=== PATIENT | female | born 2000 | race African-American/Black ===

== ENCOUNTER 2022-07-22 18:11 | Emergency (ER) | payer SELFPAY ==
[~2022-07-22] VITALS: Ht 157.5 cm; Wt 50.0 kg
--- NOTE | 2022-07-22 18:39 | ED General ---
General Chief Complaint: Cough/Cold/Flu Symptoms Stated Complaint: VOMITING,COUGH,LIGHTHEADED Nursing Triage Note: PT AMB TO [facility] 6 WITH COMPLAINT OF COUGH, LIGHTHEADED, AND VOMITING. STATES HAS BEEN HAVING SYMPTOMS FOR A WEEK. WAS AROUND [facility] WHO TESTED POSITIVE FOR THE FLU. STATES WHILE AT WORK TONIGHT SHE BECAME LIGHTHEADED AND THOUGHT SHE WAS GOING TO PASS OUT. Source of Information: Patient History of Present Illness Date Seen by Provider: Jul 22, 2022 Time Seen by Provider: 18:30 Initial Comments PT ARRIVES VIA POV FROM HOME PT STATES SHE HAS HAD COUGH AND CONGESTION X 1 WEEK HAS HAD NAUSEA/VOMITING AND DIARRHEA OFF AND ON X 1 WEEK. VOMITING HAS BEEN WORSE SINCE YESTERDAY STATES SHE HAS VOMITED "ALL MORNING" "TOO MANY TIMES TO COUNT" --STATES SHE IS VOMITING UP BILE. NO NAUSEA AT THIS TIME HAS HAD DIARRHEA X 2 TODAY. NO HEMATEMESIS OR COFFEE-GROUND EMESIS, NO BLACK/BLOODY/TARRY STOOLS SHE IS URINATING A NORMAL AMOUNT, AND NO URINARY SYMPTOMS HAS NOT CHECKED HER TEMPERATURE, BUT DOES NOT FEEL LIKE SHE HAS HAD FEVER C/O HEADACHE. WAS AT WORK TODAY AT [employer] AND GOT DIZZY AND THOUGHT SHE WAS GOING TO PASS OUT. HAS BEEN DRINKING WATER AND KEEPS IT DOWN CANNOT KEEP FOOD DOWN. LAST ATE A [employer] ABOUT 3 HOURS AGO AND VOMITED AFTERWARDS. ATE [employer] YESTERDAY AND VOMITED AFTERWARDS. HAS NOT SOUGHT CARE UNTIL TODAY HAS BEEN TAKING NYQUIL FOR COUGH/CONGESTION + SICK CONTACTS WITH FLU--[facility] TESTED + FOR FLU 5 PEOPLE LIVE IN THE HOUSE WITH HER. LMP--NOW, BEGAN 2 DAYS AGO. NO CONTROL PCP: NONE. RECENTLY MOVED HERE FROM [place], [place]. DID NOT HAVE A DR. THERE EITHER Allergies and Home Medications Allergies Coded Allergies: No Known Drug Allergies (Unverified , 07/22/22) Patient Home Medication List Home Medication List Reviewed: Yes Nitrofurantoin Monohyd/M-Cryst (Macrobid 100 mg Capsule) 100 Mg Capsule, 1 TAB PO BID Prescribed by: JUSTINO NOEL on 07/22/221923 Ondansetron (Ondansetron Odt) 4 Mg Tab.rapdis, 4 MG PO Q4H Prescribed by: JUSTINO NOEL on 07/22/221923 Review of Systems Review of Systems Constitutional: see HPI, dizziness, malaise, weakness EENTM: no symptoms reported Respiratory: see HPI, cough; No short of breath Cardiovascular: no symptoms reported Gastrointestinal: see HPI; No abdominal pain; diarrhea, loss of appetite, nausea, vomiting Genitourinary: no symptoms reported Musculoskeletal: no symptoms reported Skin: no symptoms reported Psychiatric/Neurological: See HPI, Headache Hematologic/Lymphatic: No Symptoms Reported Immunological/Allergic: no symptoms reported Past Ixobxoc-Zehcxc-Xnnamx Hx Patient Social History Tobacco Use?: No Use of E-Cig and/or Vaping dev: Yes Substance use?: No Alcohol Use?: No Pt feels they are or have been: No Immunizations Up To Date Influenza Vaccine Up-to-Date: No; Not Current First/Initial COVID19 Vaccinat: NO Second COVID19 Vaccination Memo: NO Physical Exam Vital Signs Vital Signs - First Documented 07/22/22 18:18 Pulse 80 Resp 16 B/P (MAP) 122/65 (84) Pulse Ox 100 O2 Delivery Room Air Capillary Refill : Less Than 3 Seconds Height, Weight, BMI Height: '" Weight: lbs. oz. kg; 20.00 BMI Method: General Appearance: No Apparent Distress, WD/WN, Other (DOES NOT APPEAR ILL OR TO BE IN ANY DISCOMFORT OR DISTRESS. CONSTANTLY TEXTING AND FACE-TIME AND /P LAYING ON PHONE THROUGHOUT HISTORY AND EXAM. REFUSES TO PUT PHONE DOWN. ) HEENT: PERRL/EOMI, Normal ENT Inspection, Pharynx Normal, Moist Mucous Membranes Neck: Normal Inspection Respiratory: Normal Breath Sounds, No Accessory Muscle Use, No Respiratory Distress Cardiovascular: Regular Rate, Rhythm, No Murmur Gastrointestinal: Non Tender, Soft Back: Normal Inspection Extremity: Normal Inspection Neurologic/Psychiatric: Alert, Oriented x3, No Motor/Sensory Deficits, Normal Mood/Affect, gore maker II-XII Norm as Tested Skin: Normal Color (PT IS BLACK), Warm/Dry; No Rash Progress/Results/Core Measures Suspected Sepsis SIRS Temperature: Pulse: 80 Respiratory Rate: 16 Laboratory Tests 07/22/22 18:42: White Blood Count 11.1H Blood Pressure 122 /65 Mean: 84 Laboratory Tests 07/22/22 18:42: Creatinine 0.78, Platelet Count 142, Total Bilirubin 0.6 Results/Orders Lab Results Laboratory Tests Test 07/22/22 18:30 07/22/22 18:42 07/22/22 18:47 Range/Units Influenza Type A (RT-PCR) Detected H Not Detecte Influenza Type B (RT-PCR) Not Detected Not Detecte SARS-CoV-2 RNA (RT-PCR) Not Detected Not Detecte White Blood Count 11.1 H 4.3-11.0 10^3/uL Red Blood Count 4.09 3.80-5.11 10^6/uL Hemoglobin 12.4 11.5-16.0 g/dL Hematocrit 36 35-52 % Mean Corpuscular Volume 87 80-99 fL Mean Corpuscular Hemoglobin 30 25-34 pg Mean Corpuscular Hemoglobin Concent 35 32-36 g/dL Red Cell Distribution Width 12.0 10.0-14.5 % Platelet Count 142 130-400 10^3/uL Mean Platelet Volume 9.7 9.0-12.2 fL Immature Granulocyte % (Auto) 0 % Neutrophils (%) (Auto) 83 H 42-75 % Lymphocytes (%) (Auto) 12 12-44 % Monocytes (%) (Auto) 5 0-12 % Eosinophils (%) (Auto) 0 0-10 % Basophils (%) (Auto) 0 0-10 % Neutrophils # (Auto) 9.2 H 1.8-7.8 10^3/uL Lymphocytes # (Auto) 1.3 1.0-4.0 10^3/uL Monocytes # (Auto) 0.5 0.0-1.0 10^3/uL Eosinophils # (Auto) 0.0 0.0-0.3 10^3/uL Basophils # (Auto) 0.0 0.0-0.1 10^3/uL Immature Granulocyte # (Auto) 0.0 0.0-0.1 10^3/uL Percent Immature Platelet Fraction 2.9 0.0-7.6 % Sodium Level 140 135-145 MMOL/L Potassium Level 3.3 L 3.6-5.0 MMOL/L Chloride Level 104 98-107 MMOL/L Carbon Dioxide Level 23 21-32 MMOL/L Anion Gap 13 5-14 MMOL/L Blood Urea Nitrogen 14 7-18 MG/DL Creatinine 0.78 0.60-1.30 MG/DL Estimat Glomerular Filtration Rate 111 BUN/Creatinine Ratio 18 Glucose Level 113 H 70-105 MG/DL Calcium Level 9.2 8.5-10.1 MG/DL Corrected Calcium 9.0 8.5-10.1 MG/DL Magnesium Level 2.0 1.6-2.4 MG/DL Total Bilirubin 0.6 0.1-1.0 MG/DL Aspartate Amino Transf (AST/SGOT) 17 5-34 U/L Alanine Aminotransferase (ALT/SGPT) 13 0-55 U/L Alkaline Phosphatase 49 40-136 U/L Total Protein 7.1 6.4-8.2 GM/DL Albumin 4.3 3.2-4.5 GM/DL Amylase Level 86 25-125 U/L Lipase 28 8-78 U/L Urine Color ORANGE Urine Clarity SL CLOUDY Urine pH 6.5 5-9 Urine Specific [place] >=1.030 1.016-1.022 Urine Protein 3+ H NEGATIVE Urine Glucose (UA) NEGATIVE NEGATIVE Urine Ketones 3+ H NEGATIVE Urine Nitrite NEGATIVE NEGATIVE Urine Bilirubin 2+ H NEGATIVE Urine Urobilinogen 4.0 < = 1.0 MG/DL Urine Leukocyte Esterase TRACE H NEGATIVE Urine RBC (Auto) 3+ H NEGATIVE Urine RBC 25-50 H /HPF Urine WBC 5-10 H /HPF Urine Squamous Epithelial Cells 2-5 /HPF Urine Crystals NONE /LPF Urine Bacteria NEGATIVE /HPF Urine Casts NONE /LPF Urine Mucus MODERATE H /LPF Urine Culture Indicated YES Urine Opiates Screen NEGATIVE NEGATIVE Urine Oxycodone Screen NEGATIVE NEGATIVE Urine Methadone Screen NEGATIVE NEGATIVE Urine Propoxyphene Screen NEGATIVE NEGATIVE Urine Barbiturates Screen NEGATIVE NEGATIVE Ur Tricyclic Antidepressants Screen NEGATIVE NEGATIVE Urine Phencyclidine Screen NEGATIVE NEGATIVE Urine Amphetamines Screen NEGATIVE NEGATIVE Urine Methamphetamines Screen NEGATIVE NEGATIVE Urine Benzodiazepines Screen NEGATIVE NEGATIVE Urine Cocaine Screen NEGATIVE NEGATIVE Urine Cannabinoids Screen POSITIVE H NEGATIVE Micro Results Microbiology 07/22/22 Urine Culture - Preliminary, Resulted Culture In Progress My Orders Orders - JUSTINO NOEL DO Urine Bedside (07/22/22 18:30) Drug Screen Stat (Urine) (07/22/22 18:30) Ua Culture If Indicated (07/22/22 18:30) Covid 19 Inhouse Test (07/22/22 18:30) Influenza A And B By Pcr (07/22/22 18:30) Isolation Central Supply Req (07/22/22 18:30) Ed Iv/Invasive Line Start (07/22/22 18:39) Monitor-Rhythm Ecg Trace Only (07/22/22 18:39) Amylase (07/22/22 18:39) Cbc With Automated Diff (07/22/22 18:39) Comprehensive Metabolic Panel (07/22/22 18:39) Lipase (07/22/22 18:39) Magnesium (07/22/22 18:39) Ed Iv/Invasive Line Start (07/22/22 18:39) Lactated Ringers (Lr 1000 Ml Iv Solution (07/22/22 18:45) Urine Culture (07/22/22 18:47) Medications Given in ED Vital Signs/I&O 07/22/22 07/22/22 18:18 19:46 Pulse 80 91 Resp 16 16 B/P (MAP) 122/65 (84) 123/75 Pulse Ox 100 100 O2 Delivery Room Air Room Air Capillary Refill : Less Than 3 Seconds Blood Pressure Mean: 84 Progress Note : Progress Note PPE WORN COVID AND FLU TESTING DONE GIVEN IV FLUIDS PT IS INFLUENZA A +, HER SYMPTOMS HAVE BEEN ONGOING FOR A WEEK, SHE IS OUTSIDE TREATMENT WINDOW FOR ANTIVIRAL THERAPY. PT WAS ABLE TO VOID ON ARRIVAL. SHE DOES NOT APPEAR TO BE TOXIC, OR ACUTELY ILL. NO COUGH NO DYSPNEA NO HYPOXIA NO FEVER NO GI SYMPTOMS . NO NAUSEA DURING ER STAY. DURING ER STAY. VITALS STABLE. Departure Impression Primary Impression: Influenza A Additional Impressions: Dehydration UTI (urinary tract infection) Disposition: HOME, SELF-CARE Condition: Stable Departure-Patient Inst. Decision time for Depature: 19:01 Referrals: NO,LOCAL PHYSICIAN (PCP/Family) Primary Care Physician Patient Instructions: Flu, Adult (DC), How to Wash Your Hands Properly, Preventing the Spread of an Infectious Disease, Dehydration, Adult ED, Urinary Tract Infection, Adult ED Add. Discharge Instructions: HOME, REST LOTS OF CLEAR LIQUIDS--WATER, BROTH, JELLO, GATORADE BRATS DIET--BANANAS, RICE, APPLESAUCE, TOAST, SALTINES TYLENOL 1 GRAM PLUS MOTRIN 800 MG 4 TIMES A DAY NEEDED FOR PAIN OR FEVER OVER THE COUNTER MEDICATIONS FOR COUGH AND CONGESTION FOLLOW UP WITH DR OF CHOICE IN 4-5 DAYS IF NO BETTER, RETURN TO ER IF WORSE All discharge instructions reviewed with patient and/or family. Voiced understanding. Scripts Nitrofurantoin Monohyd/M-Cryst (Macrobid 100 mg Capsule) 100 Mg Capsule 1 TAB PO BID, #20 CAP Prov: JUSTINO NOEL DO 07/22/22 Ondansetron (Ondansetron Odt) 4 Mg Tab.rapdis 4 MG PO Q4H for Nausea/Vomiting, #10 TAB Prov: JUSTINO NOEL DO 07/22/22 Work/School Note: Local Medical Staff Listing, Work Release Form Date Seen in the Emergency Department: Jul 22, 2022 Return to Work: Jul 29, 2022 JUSTINO NOEL DO Jul 22, 2022 18:39
[2022-07-22] MEDS ORDERED: LACTATED RINGERS 1,000 ML IV ONE (18:45)
[2022-07-22 18:53] LABS: BASOPHILS % (AUTO) 0 % (0-10); EOSINOPHILS % (AUTO) 0 % (0-10); HEMOGLOBIN 12.4 g/dL (11.5-16.0); MONOCYTES # (AUTO) 0.5 10^3/uL (0.0-1.0); MONOCYTES % (AUTO) 5 % (0-12); NEUTROPHILS # (AUTO) 9.2 10^3/uL (1.8-7.8)
[2022-07-22 18:55] LABS: HEMATOCRIT 36 % (35-52); LYMPHOCYTES # (AUTO) 1.3 10^3/uL (1.0-4.0); LYMPHOCYTES % (AUTO) 12 % (12-44); MEAN CORPUSCULAR HEMOGLOBIN 30 pg (25-34); MEAN CORPUSCULAR HGB CONC 35 g/dL (32-36); MEAN CORPUSCULAR VOLUME 87 fL (80-99); MEAN PLATELET VOLUME 9.7 fL (9.0-12.2); NEUTROPHILS % (AUTO) 83 % (42-75); PLATELET COUNT 142 10^3/uL (130-400); WHITE BLOOD COUNT 11.1 10^3/uL (4.3-11.0)
[2022-07-22 18:55] LABS: CLARITY,URINE SL CLOUDY; COLOR,URINE ORANGE; GLUCOSE, URINE (UA) NEGATIVE (NEGATIVE); KETONES,URINE 3+ (NEGATIVE); LEUKOCYTE ESTERASE ,URINE TRACE (NEGATIVE); NITRITE,URINE NEGATIVE (NEGATIVE); PH,URINE 6.5 (5-9); PROTEIN,URINE 3+ (NEGATIVE)
[2022-07-22 19:03] LABS: ALBUMIN 4.3 GM/DL (3.2-4.5); POTASSIUM 3.3 MMOL/L (3.6-5.0)
[2022-07-22 19:04] LABS: CALCIUM 9.2 MG/DL (8.5-10.1)
[2022-07-22 19:06] LABS: TOTAL PROTEIN 7.1 GM/DL (6.4-8.2)
[2022-07-22 19:07] LABS: BILIRUBIN,TOTAL 0.6 MG/DL (0.1-1.0)
[2022-07-22 19:09] LABS: CREATININE SERUM 0.78 MG/DL (0.60-1.30)
[2022-07-22 19:10] LABS: BACTERIA,URINE NEGATIVE /HPF; BILIRUBIN,URINE 2+ (NEGATIVE); RBC,URINE 25-50 /HPF
[2022-07-22 19:20] LABS: AMPHETAMINE SCREEN, URINE NEGATIVE (NEGATIVE); BARBITURATE SCREEN URINE NEGATIVE (NEGATIVE); BENZODIAZEPINES SCREEN URINE NEGATIVE (NEGATIVE); CANNABINOID SCREEN, URINE POSITIVE (NEGATIVE); COCAINE SCREEN URINE NEGATIVE (NEGATIVE); METHADONE STAT NEGATIVE (NEGATIVE); OPIATE SCREEN URINE NEGATIVE (NEGATIVE); OXYCODONE STAT NEGATIVE (NEGATIVE); PROPOXYPHENE STAT NEGATIVE (NEGATIVE); TRICYCLIC ANTIDEPRESSANTS SCRE NEGATIVE (NEGATIVE)
[2022-07-22] MEDS ORDERED: ONDA4TAB11 PO (19:24)
[2022-07-22] MEDS ORDERED: NITR-65 PO (19:24)
[2022-07-22 19:46] VITALS: BP 123/75
== END 2022-07-22 19:47 | disposition home or self-care (01) ==
LOC: ER 18:15
DX: J10.1 Influenza due to other identified influenza virus with other respiratory manifestations (principal); E86.0 Dehydration; N39.0 Urinary tract infection, site not specified; F17.290 Nicotine dependence, other tobacco product, uncomplicated; Z20.822 Contact with and (suspected) exposure to COVID-19; Z28.310 Unvaccinated for COVID-19
CPT/HCPCS: 36415; 80053; 80306; 81000; 82150; 83690; 83735; 84703; 85025; 87088; 87636; 99283